=== PATIENT | male | born 1970 | race Two or more races ===

== ENCOUNTER 2017-03-30 15:10 | Inpatient (IN) | payer MEDICAID ==
[~2017-03-30] VITALS: Ht 167.6 cm; Wt 51.7 kg
--- NOTE | 2017-03-30 15:12 | NUR ---
PT DIONICIO CASTILLO ER BED 10 ACCOMPANIED BY PD. ON 5150 HOLD FOR GD/DTS AFTER STATING THAT HE WANTS TO . GOWNED AND PLACED ON MONITOR. AWAITING MD LINDO.
--- NOTE | 2017-03-30 15:32 | NUR ---
DR HOUSE AT BEDSIDE FOR EVAL.
--- NOTE | 2017-03-30 15:43 | NUR ---
DIRECTOR OF COMMUNITY SERVICES AT BEDSIDE FOR BLOOD DRAW.
[2017-03-30 15:48] LABS: BASOPHILS # (AUTO) 0.1 /CMM (0.0-0.2); BASOPHILS % (AUTO) 2.5 % (0.0-2.0); EOSINOPHILS % (AUTO) 0.9 % (0.0-6.0); HEMATOCRIT 43 % (39-51); HEMOGLOBIN 14.4 g/dL (13.5-17.5); LYMPHOCYTES # (AUTO) 1.4 /CMM (0.8-4.8); LYMPHOCYTES % (AUTO) 31.6 % (20.0-44.0); MEAN CORPUSCULAR HEMOGLOBIN 35 PG (26.0-33.0); MEAN CORPUSCULAR HGB CONC 33 g/dl (31.0-36.0); MEAN CORPUSCULAR VOLUME 105 fL (80-96); MONOCYTES # (AUTO) 0.3 /CMM (0.1-1.30); MONOCYTES % (AUTO) 6.3 % (2.0-12.0); NEUTROPHILS # (AUTO) 2.5 /CMM (1.8-8.9); NEUTROPHILS % (AUTO) 58.7 % (43.0-81.0); PLATELET COUNT (AUTO) 79 /CMM (150-450); RDW COEFFICIENT OF VARIATION 13.8 (11.5-15.0); RED BLOOD CELL COUNT(AUTO) 4.11 MIL/uL (4.5-6.0); WHITE BLOOD COUNT (AUTO) 4.4 K/uL (4.3-11.0)
[2017-03-30] MEDS ORDERED: HALOPERIDOL LACTATE INJ 5 MG/ML VIAL IM ONE (16:00)
[2017-03-30] MEDS ORDERED: diphenhydrAMINE HCL 50 MG/ML VIAL IM ONE (16:00)
[2017-03-30] MEDS ORDERED: LORAZEPAM INJ 2 MG/ML VIAL IM ONE (16:00)
[2017-03-30] MEDS ORDERED: diphenhydrAMINE HCL 50 MG/ML VIAL ONE (16:02)
[2017-03-30] MEDS ORDERED: HALOPERIDOL LACTATE INJ 5 MG/ML VIAL ONE (16:02)
[2017-03-30] MEDS ORDERED: LORAZEPAM INJ 2 MG/ML VIAL ONE (16:03)
[2017-03-30 16:19] LABS: ALANINE AMINOTRANSFERASE 166 U/L (12-78); ALCOHOL, BLOOD 473 mg/dL (0-0); ALKALINE PHOSPHATASE 421 U/L (46-116); ASPARTATE AMINOTRANSFERASE 456 U/L (15-37); BILIRUBIN,DIRECT 4.1 mg/dL (0.0-0.2); BILIRUBIN,TOTAL 5.1 mg/dL (0.2-1.0); CALCIUM, SERUM 8.7 mg/dL (8.5-10.1); CARBON DIOXIDE 34 mmol/L (21-32); CHLORIDE 98 mmol/L (98-107); CREATININE 0.6 mg/dL (0.6-1.3); GLUCOSE 98 mg/dL (74-106); SODIUM SERUM 143 mmol/L (136-145); TOTAL PROTEIN, SERUM 6.7 g/dL (6.4-8.2); UREA NITROGEN, BLOOD 5 mg/dL (7-18)
[2017-03-30 16:20] LABS: LYMPHOCYTES % (MANUAL) 37 % (16-48); MONOCYTES % (MANUAL) 3 % (0-11.0); NEUTROPHILS % (MANUAL) 60 (42-76)
[2017-03-30 16:22] LABS: POTASSIUM 2.8 mmol/L (3.5-5.1)
[2017-03-30 16:23] LABS: ACETAMINOPHEN < 2 ug/ml (10-30); SALICYLATE < 2.8 mg/dL (2.8-20.0)
[2017-03-30 16:35] LABS: BILIRUBIN,URINE SMALL (NEGATIVE); BLOOD, URINE Trace-lysed Ery/uL (NEGATIVE); KETONES,URINE Negative (NEGATIVE); LEUKOCYTE ESTERASE ,URINE Negative (NEGATIVE); NITRITE, URINE Negative (NEGATIVE); PROTEIN,URINE Negative (NEGATIVE); UGLUCOSE Negative (NEGATIVE)
[2017-03-30 16:36] LABS: APPEARANCE,URINE Hazy (CLEAR); COLOR,URINE Dark Yellow (YELLOW)
[2017-03-30 16:41] LABS: BACTERIA,URINE None seen /HPF (None Seen); RBC,URINE 0-3 /HPF (0-2); SQUAMOUS EPITHELIAL CELL,UR Moderate /HPF (None Seen)
--- NOTE | 2017-03-30 18:32 | NUR ---
PT SLEEPING ON MONITOR. STABLE VITALS. AWAITING MD LINDO.
[2017-03-30] MEDS ORDERED: MAG HYDROX/AL HYDROX/SIMETH 30 ML UDC PO PRN (19:30)
[2017-03-30] MEDS ORDERED: MAGNESIUM HYDROXIDE 30 ML UDC PO PRN (19:30)
[2017-03-30] MEDS ORDERED: Thiamine 100 MG in IV D5W 50 ML IV ONE (20:00)
--- NOTE | 2017-03-30 20:07 | NUR ---
BED ASSIGNMENT: 104
--- NOTE | 2017-03-30 20:25 | NUR ---
REPORT GIVEN TO YOVANY. PT AWAITING TRANSFER TO FLOOR.
[2017-03-30] MEDS: POTASSIUM CL. PREMIX PERIPHER. 50 ML IV SCH ×3 (21:11→22:56)
[2017-03-30] MEDS: IV NS 0.9% 1,000 ML IV PRN (21:11)
[2017-03-30] MEDS: FAMOTIDINE/PF INJ 20 MG/2 ML VIAL IV SCH (21:57)
[2017-03-31] VITALS: BP 98/68
[2017-03-31] MEDS: POTASSIUM CL. PREMIX PERIPHER. 50 ML IV SCH ×3 (00:08→03:48)
--- NOTE | 2017-03-31 01:49 | NUR ---
RN NOTES 0146 PATIENT AWAKE, RESTLESS. ASKING TO SMOKE AND DRINK WATER. ALPESH, PHYS THER MADE AWARE WITH ORDER TO ADVANCE DIET AND NO SMOKING. PATIENT INFORMED, SANDWICH AND WATER PROVIDED
[2017-03-31] MEDS: LORAZEPAM INJ 2 MG/ML VIAL IV PRN ×3 (02:32→21:30)
--- NOTE | 2017-03-31 02:33 | NUR ---
TELE/RN NOTES: PT. KEEPS ON TRYING TO GET OUT OF THE BED TO GO TO SMOKE. TAKING OFF HIS O2 AND TELE MONITOR. KEEP ON ASKING WHY IS HE HERE AND TO LET HIM GO TO SMOKE. PT. EDUCATED THAT SMOKING IS NOT POSSIBLE RIGHT NOW. PRN ATIVAN GIVEN PER ORDER. W/ 1:1 SITTER AT BEDSIDE. NOT IN ANY RESPIRATORY DISTRESS. CALL LIGHT W/ REACH.
[2017-03-31 04:00] VITALS: BP 104/74
[2017-03-31] MEDS: IV NS 0.9% 1,000 ML IV PRN (05:49)
[2017-03-31 06:24] LABS: BASOPHILS % (AUTO) 0.9 % (0.0-2.0); EOSINOPHILS % (AUTO) 0.3 % (0.0-6.0); HEMATOCRIT 35 % (39-51); HEMOGLOBIN 12.2 g/dL (13.5-17.5); LYMPHOCYTES # (AUTO) 1.1 /CMM (0.8-4.8); LYMPHOCYTES % (AUTO) 24.9 % (20.0-44.0); MEAN CORPUSCULAR HEMOGLOBIN 36 PG (26.0-33.0); MEAN CORPUSCULAR HGB CONC 35 g/dl (31.0-36.0); MEAN CORPUSCULAR VOLUME 105 fL (80-96); MONOCYTES # (AUTO) 0.4 /CMM (0.1-1.30); MONOCYTES % (AUTO) 8.1 % (2.0-12.0); NEUTROPHILS % (AUTO) 65.8 % (43.0-81.0); PLATELET COUNT (AUTO) 60 /CMM (150-450); RDW COEFFICIENT OF VARIATION 14.8 (11.5-15.0); RED BLOOD CELL COUNT(AUTO) 3.37 MIL/uL (4.5-6.0); WHITE BLOOD COUNT (AUTO) 4.6 K/uL (4.3-11.0)
--- NOTE | 2017-03-31 06:36 | NUR ---
RN/TELE NOTES: PT. IN BED AWAKE ASKING TO HEAR HIS RADIO AND TO SMOKE. PT. EASILY REDIRECTED. WATCHING TV. NOT IN ANY RESPIRATORY DISTRESS. GETS UP TO GO TO BATHROOM. CALL LIGHT W/ REACH. ALL NEEDS MEET AND ATTENDED. REPORT GIVEN TO NEXT SHIFT NURSE FOR [facility].
[2017-03-31 06:43] LABS: CALCIUM, SERUM 8.2 mg/dL (8.5-10.1); CREATININE 0.6 mg/dL (0.6-1.3); MAGNESIUM 1.7 mg/dL (1.8-2.4); PHOSPHORUS 1.5 mg/dL (2.5-4.9); POTASSIUM 3.3 mmol/L (3.5-5.1)
--- NOTE | 2017-03-31 07:28 | NUR ---
RN NOTES RECEIVED PT IN STABLE CONDITION, RESTING IN BED WITH SITTER AT BEDSIDE. A&0X3, NO SUICIDAL IDEATION AT THIS TIME, ON 2L NC NO SOB OR DISTRESS NOTED SR ON THE TELE MONITOR HR IN THE 80S. LH 18G IV SITE DRY AND INTACT WITH IVF AT 125ML/HR. SIDE RAILS UPX3, CALL LIGHT WITHIN REACH, BED LOCKED AND IN LOWEST POSITION, WILL CONT TO MONITOR.
[2017-03-31 08:00] VITALS: BP 110/71
[2017-03-31] MEDS: THIAMINE HCL 100 MG TABLET PO SCH (08:18)
[2017-03-31] MEDS: FAMOTIDINE/PF INJ 20 MG/2 ML VIAL IV SCH (08:18)
[2017-03-31 08:35] LABS: BAND % (MANUAL) 1 % (0.0-5.0); EOSINOPHILS % (MANUAL) 1 % (0-4); LYMPHOCYTES % (MANUAL) 25 % (16-48); MONOCYTES % (MANUAL) 5 % (0-11.0); NEUTROPHILS % (MANUAL) 68 (42-76)
--- NOTE | 2017-03-31 09:25 | NUR ---
RN NOTES PT ATTEMPTED TO GET OUT OF BED, IV PULLED OUT, REFUSING TO ALLOW NEW IV AT THE MOMENT. WILL CONT TO MONITOR AND TRY AGAIN.
[2017-03-31] MEDS: Magnesium 1GM/D5W 100ML PREMIX 100 ML IV SCH ×2 (09:54→11:24)
[2017-03-31] MEDS ORDERED: POTASSIUM CHLORIDE 20 MEQ TAB.PRT.SR PO SCH (11:00)
--- NOTE | 2017-03-31 11:12 | NUR ---
YOUNG consulted with Joy Lugo, patient's nurse at [facility] in order to inquire about patient's 5150 Hold. Patient is placed on a 5150 hold per Smart Team. Per NurseBrittney a psychiatric referral was faxed to [facility] and pending response. YOUNG was unable to assess patient needs at the time, however will follow up on this date.
[2017-03-31] MEDS ORDERED: K PHOS NEUTRAL 250 MG TABLET PO ONE (11:30)
[2017-03-31 12:00] VITALS: BP 117/77
[2017-03-31] MEDS: PENTOXIFYLLINE 400 MG TABLET.SA PO SCH ×2 (12:22→17:26)
--- NOTE | 2017-03-31 13:58 | NUR ---
SW met with patient in his room in order to assess for level of functioning and to assess for needs. Patient was oriented x3. Patient reported feeling, "a little sick because I threw up." Patient trembled and speech was impaired. Patient appears to be experiencing withdrawal sxs. Patient denied SI/HI. Patient informed SW that he would like to return home. Patient reported having a problem with alcohol and reported drinking (vodka, beer and wine) every day for the past year. SW provided patient with a copy of substance abuse facilities and he was agreeable. In addition, SW consulted with patient's nurse Isi who reported patient having been assessed by psychiatrist, Dr. Perrin. Patient has been released from 5150 hold, per nurse. SW to follow up to ensure patient's needs have been met.
[2017-03-31] MEDS: ONDANSETRON HCL/PF 4 MG/2 ML VIAL IVP PRN (14:54)
[2017-03-31 15:20] LABS: INR 1.06 (0.87-1.13)
[2017-03-31 16:00] VITALS: BP 105/68
--- NOTE | 2017-03-31 17:10 | NUR ---
SW provided patient with the following referrals to substance abuse facilities: [facility] [address] [facility] [address] , [facility] [address] [facility] [address] and [facility] [address] [facility] [address] . Pt agreed to follow up upon discharge.
--- NOTE | 2017-03-31 18:36 | NUR ---
RN NOTES PT REMAINED IN STABLE CONDITION THROUGHOUT THE SHIFT WITH SITTER AT BEDSIDE, PT HAS 2 EPISODES OF VOMITING ZOFRAN ADMINISTERED. PT WAS REMOVED OFF 5150. NO SIGNS OF DANGER TO SELF THROUGHOUT MY SHIFT. ALL NEEDS MET, PT CLEANED, SNACKS PROVIDED. SIDE RAILS UPX3, BED LOCKED AND IN LOWEST POSITION, WILL ENDORSE TO ONCOMING SHIFT.
--- NOTE | 2017-03-31 19:40 | NUR ---
DIE TROUBLE SHOOTER INITIAL NOTE PT RECEIVED RESTING IN BED WITH SITTER AT BEDSIDE. A/O X2-3 CALM, SLEEPY BUT ABLE TO MAKE NEEDS KNOWN. ON ROOM AIR AND SATURATING 97%. BREATHING EVEN, REGULAR AND UNLABORED. NOTED WITH TREMORS ON HANDS AND WEAKNESS DURING AMBULATION TO THE RESTROOM. IV LEFT ARM CLEAN, PATENT WITH FLUIDS RUNNING. CALL LIGHT WITHIN REACH. WILL CONTINUE TO MONITOR.
[2017-03-31 20:00] VITALS: BP 107/66
--- NOTE | 2017-03-31 21:30 | NUR ---
RN NOTE PT SEEN/EVALUATED BY FIRER LOW PRESSURE FOR DR CRUZ. WITH NEW ORDER FOR LABS AMMONIA, BILIRUBIN, LFT'S. PT REPORTED BLOOD IN STOOL AND FIRER LOW PRESSURE ORDERED STOOL OB. WILL COLLECT AND F/U. ORDERS CARRIED OUT. WILL CONTINUE TO MONITOR.
[2017-04-01] VITALS: BP 118/81
[2017-04-01] MEDS: LORAZEPAM INJ 2 MG/ML VIAL IV PRN ×3 (02:23→12:44)
[2017-04-01 04:00] VITALS: BP_SYST 109; BP_SYST 118; BP_DIAS 76; BP_DIAS 81
[2017-04-01 06:17] LABS: BASOPHILS % (AUTO) 0.8 % (0.0-2.0); EOSINOPHILS % (AUTO) 0.2 % (0.0-6.0); HEMATOCRIT 34 % (39-51); LYMPHOCYTES # (AUTO) 1.4 /CMM (0.8-4.8); LYMPHOCYTES % (AUTO) 26.8 % (20.0-44.0); MEAN CORPUSCULAR HEMOGLOBIN 37 PG (26.0-33.0); MEAN CORPUSCULAR HGB CONC 35 g/dl (31.0-36.0); MEAN CORPUSCULAR VOLUME 105 fL (80-96); MONOCYTES # (AUTO) 0.4 /CMM (0.1-1.30); MONOCYTES % (AUTO) 7.4 % (2.0-12.0); NEUTROPHILS # (AUTO) 3.5 /CMM (1.8-8.9); NEUTROPHILS % (AUTO) 64.8 % (43.0-81.0); RDW COEFFICIENT OF VARIATION 14.6 (11.5-15.0); RED BLOOD CELL COUNT(AUTO) 3.25 MIL/uL (4.5-6.0); WHITE BLOOD COUNT (AUTO) 5.4 K/uL (4.3-11.0)
[2017-04-01] MEDS: IV NS 0.9% 1,000 ML IV PRN (06:18)
[2017-04-01] MEDS: ONDANSETRON HCL/PF 4 MG/2 ML VIAL IVP PRN ×2 (06:18→11:27)
[2017-04-01 06:30] LABS: PLATELET COUNT (AUTO) 45 /CMM (150-450)
[2017-04-01 06:50] LABS: CALCIUM, SERUM 8.6 mg/dL (8.5-10.1); CREATININE 0.7 mg/dL (0.6-1.3); MAGNESIUM 2.2 mg/dL (1.8-2.4); POTASSIUM 3.1 mmol/L (3.5-5.1)
--- NOTE | 2017-04-01 07:01 | NUR ---
TECHNICAL SPEC CLOSING NOTE PT REMAINED STABLE DURING SHIFT WITH SITTER AT BEDSIDE. PT NOTED WITH UNSTEADY GAIT WHEN AMBULATING TO THE RESTROOM. NOTED WITH TREMORS AND AGITATION. GAVE ATIVAN 0.5ML TO CALM THE PT.ALL NEEDS ATTENDED TO PROMPTLY. [id number] THROUGHOUT THE SHIFT.ALL SAFETY MEASURES IN PLACE. INFORMED BY LAB FOR CRITICAL LAB THE PT'S PLATELET COUNT HAS DECREASED FROM 60 TO 45 AND STOOL OB IS POSITIVE. WILL ENDORSE TO NEXT SHIFT FOR CONTINUITY OF CARE.
[2017-04-01 08:00] VITALS: BP 120/82
--- NOTE | 2017-04-01 08:00 | NUR ---
TELE1/RN AM SHIFT INITIAL NOTES RECEIVED PT AWAKE SITTING IN BED. PT A/O X 2, CONFUSED, BUR COMPLIANT AT THIS TIME. NOTED WITH JAUNDICE AND TREMORS. ON ROOM AIR SATURATING @ 98%, LUNG SOUNDS CLEAR. ON TELE WITH SINUS RHYTHM, HR 90. WITH ON GOING IV INFUSION OF NS @ 50CC/HR, IV SITE PATENT WITH NO S/S OF INFECTION. PT IS COMFORTABLE AT THIS TIME, SCHEDULED AM MEDS TO BE GIVEN. CL WITHIN REACHED AND SAFETY MAINTAINED. ON GOING MONITORING.
[2017-04-01 08:03] LABS: BAND % (MANUAL) 1 % (0.0-5.0); LYMPHOCYTES % (MANUAL) 19 % (16-48); MONOCYTES % (MANUAL) 5 % (0-11.0); NEUTROPHILS % (MANUAL) 75 (42-76)
[2017-04-01] MEDS: FAMOTIDINE/PF INJ 20 MG/2 ML VIAL IV SCH (08:27)
[2017-04-01] MEDS: PENTOXIFYLLINE 400 MG TABLET.SA PO SCH ×3 (08:28→16:55)
[2017-04-01] MEDS: THIAMINE HCL 100 MG TABLET PO SCH (08:28)
--- NOTE | 2017-04-01 09:30 | NUR ---
MS1/RN HIDA SCAN NOTIFIED BY RADIOLOGY THAT PT IS SCHEDULED FOR HIDA SCAN. CONSENT OBTAINED FOR PROCEDURE FROM PT'S MOTHER, PT UNABLE TO SIGN D/T TREMORS, PT PLACED ON NPO, PROCEDURE SCHEDULED AT NOON TODAY. MONITORING CONTINUED.
--- NOTE | 2017-04-01 10:25 | NUR ---
[facility] RN NOTE Received bedside SBAR report on the patient. Patient is A/O x3. Patient is awake and responsive. Patient is in bed, bes is locked, in lowest position, side rails up X 2, in semi Juarez's position. Call light within reach. Patient educated to call for assistance. Patient verbalized understanding of the teachings. Will continue to assess/monitor throughout the shift.3
--- NOTE | 2017-04-01 10:26 | NUR ---
TELE1/DUSTING AND BRUSHING MACHINE OPERATOR OF CARE REPORT GIVEN TO NURSE MICHELLE, ENDORSED TO CONTINUE CARE. CL WITHIN REACHED AND SAFETY MAINTAINED.
[2017-04-01 10:29] LABS: ALBUMIN 2.6 g/dL (3.4-5.0); BILIRUBIN,DIRECT 6.9 mg/dL (0.0-0.2); BILIRUBIN,TOTAL 8.9 mg/dL (0.2-1.0); TOTAL PROTEIN, SERUM 5.7 g/dL (6.4-8.2)
[2017-04-01] MEDS ORDERED: POTASSIUM CHLORIDE 20 MEQ TAB.PRT.SR PO ONE (10:30)
[2017-04-01] MEDS ORDERED: NICOTINE PATCH (21MG) 21 MG PATCH.TD24 TD ONE (10:59)
[2017-04-01] MEDS ORDERED: NICOTINE PATCH (21MG) 21 MG PATCH.TD24 TD SCH (11:00)
[2017-04-01] MEDS: NICOTINE PATCH (21MG) 21 MG PATCH.TD24 TD SCH (11:03)
--- NOTE | 2017-04-01 11:03 | NUR ---
NICOTINE PATCH ADMINISTERED EARLY PER PT. REQUEST AND OK BY
--- NOTE | 2017-04-01 12:04 | NUR ---
Social service consult requested by Jackie from [facility] regarding patients after care plan. Pts family addressed concerns about pts discharge and asked that he remain in the hospital for an additional week. SW advised family to discuss concerns with pts medical treatment team (i.e. doctor/nurse) regarding pts discharge. Family reported having addressed their concerns with medical staff already. Pt informed SW that he did not want to participate in a residential facility and stated, "I just want to go home." YOUNG provided pts family with the following referrals to substance abuse facilities: [facility] [address] [facility] [address] , [facility] [address] [facility] [address] and [facility] [address] [facility] [address] . In addition, YOUNG provided family with a copy of the Substance Abuse Resources section of the [facility] [place] 2016 Resource Guide. Family agreed to follow up by contacting facilities.
--- NOTE | 2017-04-01 12:40 | NUR ---
[facility] RN NOTE Patient attempted to get out of the bed and leave. Mother at the bedside stopped the patient and called the nurse. PAtient reported severe anxiety. Bed alarm on. Ativan administered as prescribed. Will continue to monitor.
[2017-04-01 16:00] VITALS: BP 122/82
[2017-04-01] MEDS ORDERED: K PHOS NEUTRAL 250 MG TABLET PO ONE (16:00)
--- NOTE | 2017-04-01 16:01 | NUR ---
YOUNG faxed inquiry (face sheet, history and physical, radiology report and toxicology) to Senthil from [facility] [address] [facility] [address]. Scale Assembly Set Up Worker will follow up to ensure pt was appropriately linked to services.
[2017-04-01] MEDS: HALOPERIDOL LACTATE INJ 5 MG/ML VIAL IM PRN (16:57)
--- NOTE | 2017-04-01 19:06 | NUR ---
[facility] RN CLOSING NOTE Patient is A/O x3. Patient is asleep, easily awaken and responsive. No evident s/s of distress present. Chest rising equally, bilaterally. Spo2 99% on room air. Patient is in bed, bes is locked, in lowest position, side rails up X 3, in semi Juarez's position. m Sitter at the bedside. Call light within reach. Patient educated to call for assistance. Patient verbalized understanding of the teachings. Will endorse to awake overnight monitor nurse for [facility]
[2017-04-01 20:00] VITALS: BP 122/80
[2017-04-02] MEDS: HALOPERIDOL LACTATE INJ 5 MG/ML VIAL IM PRN (02:10)
--- NOTE | 2017-04-02 02:11 | NUR ---
MS-1/LOGGING ENGINEER PT BECOMING RESTLESS AND AGITATED. HALDOL 5MG IM PRN ADMINISTERED ORDERED. 1:1 SITTER AT BEDSIDE WILL CONTINUE TO MONITOR.
[2017-04-02 04:00] VITALS: BP 91/65
[2017-04-02 06:36] LABS: BASOPHILS % (AUTO) 0.1 % (0.0-2.0); EOSINOPHILS % (AUTO) 0.7 % (0.0-6.0); HEMATOCRIT 35 % (39-51); HEMOGLOBIN 12.1 g/dL (13.5-17.5); LYMPHOCYTES # (AUTO) 1.1 /CMM (0.8-4.8); LYMPHOCYTES % (AUTO) 20.6 % (20.0-44.0); MEAN CORPUSCULAR HEMOGLOBIN 36 PG (26.0-33.0); MEAN CORPUSCULAR HGB CONC 35 g/dl (31.0-36.0); MEAN CORPUSCULAR VOLUME 104 fL (80-96); MONOCYTES # (AUTO) 0.4 /CMM (0.1-1.30); NEUTROPHILS # (AUTO) 3.9 /CMM (1.8-8.9); NEUTROPHILS % (AUTO) 71.6 % (43.0-81.0); RDW COEFFICIENT OF VARIATION 14.5 (11.5-15.0); RED BLOOD CELL COUNT(AUTO) 3.33 MIL/uL (4.5-6.0); WHITE BLOOD COUNT (AUTO) 5.5 K/uL (4.3-11.0)
[2017-04-02 06:49] LABS: ALBUMIN 2.4 g/dL (3.4-5.0); BILIRUBIN,DIRECT 9.1 mg/dL (0.0-0.2); CALCIUM, SERUM 8.8 mg/dL (8.5-10.1); CREATININE 0.6 mg/dL (0.6-1.3); PLATELET COUNT (AUTO) 44 /CMM (150-450); POTASSIUM 3.2 mmol/L (3.5-5.1); TOTAL PROTEIN, SERUM 5.4 g/dL (6.4-8.2)
[2017-04-02 07:22] LABS: EOSINOPHILS % (MANUAL) 1 % (0-4); LYMPHOCYTES % (MANUAL) 20 % (16-48); MONOCYTES % (MANUAL) 7 % (0-11.0); NEUTROPHILS % (MANUAL) 72 (42-76)
--- NOTE | 2017-04-02 07:56 | NUR ---
RN OPENING NOTES PT RESTING COMFORTABLY IN BED WITH EYES OPEN. AOX3. DENIES CP, SOB. DENIES ANY PAIN AT THIS TIME. RESPIRATIONS ARE EVEN AND UNLABORED. NO ACUTE DISTRESS NOTED. IV ACCESS ON THE LEFT ARM, 20 G, WITH NS RUNNING @ 50MLS/HR. NO S/S OF INFILTRATION. SITTER AT THE BED SIDE FOR SAFETY. BED LOCKED IN THE LOWEST POSITION WITH SIDERAILS UP X2. CALL LIGHT WITHIN REACH. WILL CONTINUE TO MONITOR, ASSESS AND EDUCATE THROUGHOUT SHIFT.
[2017-04-02 08:00] VITALS: BP 100/76
[2017-04-02] MEDS: THIAMINE HCL 100 MG TABLET PO SCH (08:55)
[2017-04-02] MEDS: PENTOXIFYLLINE 400 MG TABLET.SA PO SCH ×3 (08:55→17:34)
[2017-04-02] MEDS: NICOTINE PATCH (21MG) 21 MG PATCH.TD24 TD SCH (08:56)
[2017-04-02] MEDS: BOOST PLUS FOOD-VANILLA 237 ML BOX PO SCH ×3 (08:56→17:33)
[2017-04-02] MEDS: FAMOTIDINE/PF INJ 20 MG/2 ML VIAL IV SCH (08:56)
[2017-04-02] MEDS: POTASSIUM CHLORIDE 20 MEQ TAB.PRT.SR PO SCH ×2 (10:45→11:41)
[2017-04-02 12:00] VITALS: BP 111/77
--- NOTE | 2017-04-02 20:09 | NUR ---
RN CLOSING NOTES PT RESTING COMFORTABLY IN BED WITH EYES CLOSED. EASILY AROUSABLE. AOX3. DENIES PAIN. DENIES CP AND SOB. IV ACCES PATENT AND INTACT. NS RUNNING @50ML. HIDA SCAN TOMORROW. CONSENT SIGNED AND PLACED IN CHART. ALL NEEDS MET. ALL MEDS GIVEN APPROPRIATE. BED LOCKED IN THE LOWEST POSITION WITH SIDE RAILS UPX2. WILL ENDORSE TO NIGHT RN FOR [facility].
--- NOTE | 2017-04-02 20:10 | NUR ---
MS RN NOTE: PATIENT RESTING IN BED, NO ACUTE DISTRESS NOTED. BREATHING EVEN AND UNLABORED, NO SOB NOTED. IV TO LEFT ARM IN PLACE. PATIENT FOR HIDA SCAN TOMORROW, CONSENT SIGNED IN CHART. INFORMED PATIENT THAT HE CAN NOT EAT OR DRINK AFTER MIDNIGHT. BED LOCKED AND IN LOWEST POSITION, CALL LIGHT IN REACH. WILL CONTINUE TO MONITOR.
[2017-04-02] MEDS: ONDANSETRON HCL/PF 4 MG/2 ML VIAL IVP PRN (21:08)
[2017-04-02] MEDS: IV NS 0.9% 1,000 ML IV PRN (21:09)
--- NOTE | 2017-04-02 21:15 | NUR ---
MS RN NOTE: PATIENT WITH 1 EPISODE OF VOMITING, ZOFRAN 4MG IV GIVEN PER MD ORDER. WILL CONTINUE TO MONITOR.
[2017-04-02 22:00] VITALS: BP 111/77
[2017-04-03 04:30] VITALS: BP 107/76
--- NOTE | 2017-04-03 06:20 | NUR ---
MS RN NOTE: PATIENT RESTING IN BED, NO ACUTE DISTRESS NOTED. BREATHING EVEN AND UNLABORED, NO SOB NOTED. IV TO LEFT ARM IN PLACE. PATIENT FOR HIDA SCAN TODAY, CONSENT SIGNED IN CHART AND NPO SINCE MIDNIGHT. BED LOCKED AND IN LOWEST POSITION, CALL LIGHT IN REACH. WILL ENDORSE TO DAY NURSE TO CONTINUE WITH PLAN OF CARE.
[2017-04-03 06:30] LABS: BASOPHILS % (AUTO) 0.6 % (0.0-2.0); EOSINOPHILS # (AUTO) 0.1 /CMM (0.0-0.7); EOSINOPHILS % (AUTO) 1.3 % (0.0-6.0); HEMATOCRIT 35 % (39-51); HEMOGLOBIN 11.9 g/dL (13.5-17.5); LYMPHOCYTES # (AUTO) 1.3 /CMM (0.8-4.8); LYMPHOCYTES % (AUTO) 20.9 % (20.0-44.0); MEAN CORPUSCULAR HEMOGLOBIN 36 PG (26.0-33.0); MEAN CORPUSCULAR HGB CONC 34 g/dl (31.0-36.0); MEAN CORPUSCULAR VOLUME 106 fL (80-96); MONOCYTES # (AUTO) 0.5 /CMM (0.1-1.30); MONOCYTES % (AUTO) 7.5 % (2.0-12.0); NEUTROPHILS # (AUTO) 4.3 /CMM (1.8-8.9); NEUTROPHILS % (AUTO) 69.7 % (43.0-81.0); PLATELET COUNT (AUTO) 64 /CMM (150-450); RDW COEFFICIENT OF VARIATION 14.5 (11.5-15.0); RED BLOOD CELL COUNT(AUTO) 3.31 MIL/uL (4.5-6.0); WHITE BLOOD COUNT (AUTO) 6.1 K/uL (4.3-11.0)
[2017-04-03 06:31] LABS: INR 1.38 (0.87-1.13); PROTHROMBIN TIME 14.4 SECS (9.5-12.7)
[2017-04-03 07:10] LABS: ALBUMIN 2.4 g/dL (3.4-5.0); BILIRUBIN,DIRECT 10.2 mg/dL (0.0-0.2); CALCIUM, SERUM 8.7 mg/dL (8.5-10.1); CREATININE 0.6 mg/dL (0.6-1.3); POTASSIUM 3.5 mmol/L (3.5-5.1); TOTAL PROTEIN, SERUM 5.4 g/dL (6.4-8.2)
[2017-04-03 07:15] LABS: THYROID STIMULATING HORMONE 1.18 uIU/mL (0.358-3.74)
--- NOTE | 2017-04-03 07:25 | NUR ---
RN OPENING NOTES RECEIVED PATIENT IN BED, AWAKE. A/OX3. NO ACUTE DISTRESS, NO SOB NOTED. DENIES ANY PAIN OR DISCOMFORT. IV SITE INTACT AND PATENT. KEPT PATIENT SAFE AND COMFORTABLE. BED IN LOW POSITION, LOCKED, SIDERAILS UPX2. CALL LIGHT WITHIN REACH. PATIENT FOR HIDA SCAN TODAY, CONSENT SIGNED, NPO SINCE MIDNIGHT. WILL CONTINUE TO MONITOR ACCORDINGLY.
[2017-04-03 08:00] VITALS: BP 144/77
[2017-04-03 08:05] VITALS: BP 114/77
[2017-04-03 08:14] LABS: LYMPHOCYTES % (MANUAL) 19 % (16-48); MONOCYTES % (MANUAL) 9 % (0-11.0); NEUTROPHILS % (MANUAL) 72 (42-76)
[2017-04-03] MEDS: NICOTINE PATCH (21MG) 21 MG PATCH.TD24 TD SCH (09:29)
[2017-04-03] MEDS: PENTOXIFYLLINE 400 MG TABLET.SA PO SCH ×3 (09:44→17:00)
[2017-04-03] MEDS: THIAMINE HCL 100 MG TABLET PO SCH (09:44)
[2017-04-03] MEDS: BOOST PLUS FOOD-VANILLA 237 ML BOX PO SCH ×3 (09:45→17:00)
[2017-04-03] MEDS: FAMOTIDINE/PF INJ 20 MG/2 ML VIAL IV SCH (09:47)
--- NOTE | 2017-04-03 09:50 | NUR ---
RN NOTES VERIFIED WITH RADIOLOGY, HIDA SCAN WILL BE DONE TOMORROW BECAUSE ORDER IS ROUTINE AND NOT STAT. EYEGLASS LENS GENERATOR AWARE. WILL NOTIFY MD. Addendum: 04/03/17 at [address] NANCY CASILLAS.
--- NOTE | 2017-04-03 10:00 | NUR ---
RN NOTES PLEASE KEEP PATIENT NPO AFTER MIDNIGHT, WILL HAVE HIDA SCAN TOMORROW 04/04/17.
[2017-04-03 16:00] VITALS: BP 112/78
[2017-04-03] MEDS: LORAZEPAM INJ 2 MG/ML VIAL IV PRN (17:02)
[2017-04-03] MEDS: IV NS 0.9% 1,000 ML IV PRN (17:09)
--- NOTE | 2017-04-03 18:49 | NUR ---
RN CLOSING NOTES PATIENT IN BED RESTING. NO ACUTE DISTRESS, NO SOB NOTED. DENIES PAIN OR DISCOMFORT. ALL NEEDS ATTENDED AND PROVIDED. KEPT PATIENT SAFE AND COMFORTABLE. SITTER AT BEDSIDE FOR SAFETY. BED IN LOW POSITION, LOCKED, SIDERAILS UPX2. CALL LIGHT IN REACH. WILL ENDORSED TO FINANCE OFFICER RN FOR [facility].
--- NOTE | 2017-04-03 19:30 | NUR ---
RN INITIAL NOTES RECEIVED PATIENT IN BED, AWAKE, ALERT AND ORIENTED X3, WITH PERIODS OF CONFUSION, 1:1 SITTER AT BEDSIDE. BREATHING EVEN AND NONLABORED, TOLERATING ROOM AIR WELL, FREE FROM ANY S/S OF RESPIRATORY DISTRESS. LEFT FOREARM IV PATENT AND INTACT, FLUSHED WITH NS, FREE FROM ANY S/S OF INFILTRATION OR PHLEBITIS, IVF ONGOING PRESCRIBED. PLAN OF CARE DISCUSSED WITH THE PATIENT, WHO VERBALIZES UNDERSTANDING. CALL LIGHT LEFT WITHIN EASY REACH, BED IN LOWEST AND LOCKED POSITION. WILL CONTINUE TO CLOSELY MONITOR.
[2017-04-03 20:00] VITALS: BP 101/65
--- NOTE | 2017-04-04 | NUR ---
RN NOTES PATIENT NPO AT THIS TIME, SCHEDULED FOR HIDA SCAN THIS AM. PATIENT AWARE, WITH VERBALIZATION OF UNDERSTANDING
[2017-04-04 04:00] VITALS: BP 116/80
--- NOTE | 2017-04-04 07:00 | NUR ---
RN CLOSING NOTES PATIENT RESTING COMFORTABLY IN BED, 1:1 SITTER AT BEDSIDE. PATIENT NPO SINCE [place]. WILL ENDORSE THE PATIENT TO THE AM SHIFT NURSE FOR [facility]
[2017-04-04 08:00] VITALS: BP 123/88
[2017-04-04] MEDS: THIAMINE HCL 100 MG TABLET PO SCH (08:50)
[2017-04-04] MEDS: PENTOXIFYLLINE 400 MG TABLET.SA PO SCH ×3 (08:50→16:22)
[2017-04-04] MEDS: FAMOTIDINE/PF INJ 20 MG/2 ML VIAL IV SCH (08:50)
[2017-04-04] MEDS: NICOTINE PATCH (21MG) 21 MG PATCH.TD24 TD SCH (08:50)
[2017-04-04] MEDS: BOOST PLUS FOOD-VANILLA 237 ML BOX PO SCH ×3 (08:51→17:53)
--- NOTE | 2017-04-04 11:00 | NUR ---
YOUNG received a call from pt's MANISH Dhaliwal informing YOUNG that pt's mother would like to speak with YOUNG. YOUNG and heel caser Vladimir met with pt. and his mother bedside. Pt. is alert and oriented x 3. Pt's mother would like for pt. to go straight to a detox program after he is medically cleared. YOUNG informed pt. and his mother that she will refer pt. to various detox programs,however since pt. has [employer] insurance there is usually a wait list. Pt. and his mother understood. Pt. is willing to go to detox program once medically cleared, however pt. doesn't seem too keen on it. Pt. was last time in a drug treatment program was in 1999 in [place]. YOUNG contacted [facility] and spoke to Frandy who informed YOUNG that they do not availability for an assessment until mid next week. YOUNG also referred pt. to [facility] and was informed by to have pt. call in for a phone assessment. YOUNG contacted pt's mother and left her a voicemail message requesting her to have pt. call [facility] for a phone assessment. YOUNG also called pt's RN Isra and gave him the phone number for [facility] to give to pt. to call. YOUNG contacted [facility] and spoke to Vibha who informed YOUNG that they will be able to accept pt. on Tuesday04/07/17 and pt. needs to show up at 8AM. Detox center is located at [address] [place] [id number]. Addendum: 04/04/17 at 1205 by MARTHA VIDAL Correction: Pt. to go to [facility] on 04/06/17 and not 04/07/17. SW spoke to pt. and his mom regarding pt. being accepted to [facility].
[2017-04-04 12:00] VITALS: BP 116/80
[2017-04-04 13:20] LABS: EOSINOPHILS # (AUTO) 0.1 /CMM (0.0-0.7); EOSINOPHILS % (AUTO) 1.3 % (0.0-6.0); HEMATOCRIT 33 % (39-51); HEMOGLOBIN 11.5 g/dL (13.5-17.5); LYMPHOCYTES # (AUTO) 2.9 /CMM (0.8-4.8); LYMPHOCYTES % (AUTO) 41.7 % (20.0-44.0); MEAN CORPUSCULAR HEMOGLOBIN 37 PG (26.0-33.0); MEAN CORPUSCULAR HGB CONC 35 g/dl (31.0-36.0); MEAN CORPUSCULAR VOLUME 105 fL (80-96); MONOCYTES # (AUTO) 0.7 /CMM (0.1-1.30); MONOCYTES % (AUTO) 9.4 % (2.0-12.0); NEUTROPHILS # (AUTO) 3.4 /CMM (1.8-8.9); NEUTROPHILS % (AUTO) 47.6 % (43.0-81.0); RED BLOOD CELL COUNT(AUTO) 3.14 MIL/uL (4.5-6.0); WHITE BLOOD COUNT (AUTO) 7.1 K/uL (4.3-11.0)
[2017-04-04 13:42] LABS: ALBUMIN 2.3 g/dL (3.4-5.0); BILIRUBIN,DIRECT 11.8 mg/dL (0.0-0.2); BILIRUBIN,TOTAL 14.1 mg/dL (0.2-1.0); CALCIUM, SERUM 8.8 mg/dL (8.5-10.1); CREATININE 0.5 mg/dL (0.6-1.3); POTASSIUM 3.5 mmol/L (3.5-5.1); TOTAL PROTEIN, SERUM 5.2 g/dL (6.4-8.2)
[2017-04-04 14:07] LABS: PLATELET COUNT (AUTO) 103 /CMM (150-450)
[2017-04-04 16:00] VITALS: BP 119/70
--- NOTE | 2017-04-04 19:25 | NUR ---
RN OPEN NOTES RECEIVED PATIENT RESTING IN BED WITH SITTER, EASILY AROUSABLE. A/O X3. NO SIGNS OF DISTRESS OR DISCOMFORT. BREATHING EVEN AND UNLABORED. IV ACCESS IN LFA WITH NS INFUSING, PATENT AND INTACT, NO SIGNS OF REDNESS OR INFILTRATION. BED IN LOW LOCKED POSITION WITH SIDE RAILS X2. CALL LIGHT WITHIN REACH. WILL CONTINUE TO MONITOR.
[2017-04-04 20:00] VITALS: BP 110/80
[2017-04-04] MEDS: IV NS 0.9% 1,000 ML IV PRN (21:27)
[2017-04-05 04:00] VITALS: BP 107/78
--- NOTE | 2017-04-05 06:50 | NUR ---
RN CLOSING NOTES PATIENT AWAKE IN BED WITH SITTER. A/O X3. NO SIGNS OF DISTRESS OR DISCOMFORT. BREATHING EVEN AND UNLABORED. IV ACCESS IN LFA WITH NS INFUSING, PATENT AND INTACT, NO SIGNS OF REDNESS OR INFILTRATION. ALL NEEDS MET. NO SIGNIFICANT CHANGES THROUGH THE NIGHT. BED IN LOW LOCKED POSITION WITH SIDE RAILS X2. CALL LIGHT WITHIN REACH. WILL ENDORSE TO AM SHIFT FOR [facility].
[2017-04-05 07:40] LABS: HEMATOCRIT 33 % (39-51); HEMOGLOBIN 11.4 g/dL (13.5-17.5); MEAN CORPUSCULAR HEMOGLOBIN 37 PG (26.0-33.0); MEAN CORPUSCULAR HGB CONC 35 g/dl (31.0-36.0); MEAN CORPUSCULAR VOLUME 105 fL (80-96); PLATELET COUNT (AUTO) 129 /CMM (150-450); RED BLOOD CELL COUNT(AUTO) 3.09 MIL/uL (4.5-6.0); WHITE BLOOD COUNT (AUTO) 7.3 K/uL (4.3-11.0)
--- NOTE | 2017-04-05 07:46 | NUR ---
RN NOTES RECEIVED PT. PT IS STABLE AND RESTING IN BED. A/OX3. NO S/S OF DISTRESS OR SOB. PT DOES NOT APPEAR TO BE IN PAIN. SKIN INTACT, ALTHOUGH JAUNDICED. IV ACCESS LOCATED ON LEFT FOREARM 20G, RUNNING NS AT 50 ML/HR. PT IS ON CLEAR LIQUID DIET, HAS REQUESTED ADVANCEMENT OF DIET, WILL F/U WITH HOSPITALIST IN AM. SAFETY MEASURES IN PLACE, CALL LIGHT WITHIN REACH. WILL CONTINUE TO MONITOR.
[2017-04-05 07:54] LABS: INR 1.25 (0.87-1.13)
[2017-04-05 08:00] VITALS: BP 108/74
[2017-04-05 08:00] LABS: ALBUMIN 2.2 g/dL (3.4-5.0); BILIRUBIN,TOTAL 15.8 mg/dL (0.2-1.0); CALCIUM, SERUM 8.9 mg/dL (8.5-10.1); CREATININE 0.5 mg/dL (0.6-1.3); POTASSIUM 3.4 mmol/L (3.5-5.1); TOTAL PROTEIN, SERUM 5.3 g/dL (6.4-8.2)
[2017-04-05] MEDS ORDERED: POTASSIUM CHLORIDE 20 MEQ TAB.PRT.SR PO SCH (09:30)
[2017-04-05] MEDS: PENTOXIFYLLINE 400 MG TABLET.SA PO SCH ×2 (09:42→13:09)
[2017-04-05] MEDS: THIAMINE HCL 100 MG TABLET PO SCH (09:43)
[2017-04-05] MEDS: NICOTINE PATCH (21MG) 21 MG PATCH.TD24 TD SCH (09:43)
[2017-04-05] MEDS: FAMOTIDINE/PF INJ 20 MG/2 ML VIAL IV SCH (09:43)
[2017-04-05] MEDS: BOOST PLUS FOOD-VANILLA 237 ML BOX PO SCH ×2 (09:44→13:09)
[2017-04-05 12:02] LABS: LYMPHOCYTES % (MANUAL) 26 % (16-48); MONOCYTES % (MANUAL) 8 % (0-11.0); NEUTROPHILS % (MANUAL) 65 (42-76)
[2017-04-05 12:03] LABS: EOSINOPHILS % (MANUAL) 1 % (0-4)
[2017-04-05] MEDS ORDERED: CHLO25CA22 PO (13:55)
[2017-04-05] MEDS ORDERED: THIA100T13 PO (13:55)
[2017-04-05] MEDS ORDERED: PENTOXIFYLLINE PO (13:58)
--- NOTE | 2017-04-05 15:23 | NUR ---
YOUNG received a call from supportive employment case manager Payal Tamez informing YOUNG that pt. has declined to go to detox program and will be going home.
--- NOTE | 2017-04-05 16:03 | NUR ---
DISCHARGE NOTE PT DISCHARGED HOME. A/OX4. AT TIME OF DISCHARGE PT STABLE, NO SOB/LABORED BREATHING, AND VSS. PT HAS NO C/O PAIN. PT STILL APPEARS TO BE JAUNDICED. DISCHARGE TEACHING PERFORMED USING [employer], PT VERBALIZED UNDERSTANDING. PRIOR TO D/C PT DISCUSSED D/C WITH CASE MANAGEMENT, PT DECLINES RECOMMENDATION TO BE D/C TO INPATIENT ETOH REHAB. BELONGINGS LIST AND PT DISCHARGE INSTRUCTIONS SIGNED AND COPIED. COPIES PLACED IN CHART. IV ACCESS REMOVED. NEW MEDICATION PRESCRIPTION GIVEN TO PT AND COPIED/PLACED IN CHART. PT'S MOTHER ARRIVED TO PROVIDE TRANSPORT, PT LEFT IN A PRIVATE CAR WITH MOTHER UPON D/C FROM HOSPITAL.
== END 2017-04-05 15:50 | disposition home or self-care (01) | DRG 775 ==
LOC: ER 15:12 → TELE-TD 20:38 → TELE1 20:58 → MEDSG1 04-01 09:10
PROVIDERS: ADMIT Nurse Practitioner Acute Care; ATTEND Nurse Practitioner Acute Care
DX: F10.229 Alcohol dependence with intoxication, unspecified (principal); F10.239 Alcohol dependence with withdrawal, unspecified; G92 Toxic encephalopathy; D61.818 Other pancytopenia; E44.0 Moderate protein-calorie malnutrition; K92.2 Gastrointestinal hemorrhage, unspecified; D69.59 Other secondary thrombocytopenia; E88.09 Other disorders of plasma-protein metabolism, not elsewhere classified; E83.42 Hypomagnesemia; E83.39 Other disorders of phosphorus metabolism; F20.9 Schizophrenia, unspecified; F17.210 Nicotine dependence, cigarettes, uncomplicated; E87.6 Hypokalemia; D75.89 Other specified diseases of blood and blood-forming organs; E86.0 Dehydration; F12.10 Cannabis abuse, uncomplicated; K70.10 Alcoholic hepatitis without ascites; K72.90 Hepatic failure, unspecified without coma; E53.8 Deficiency of other specified B group vitamins; E51.2 Wernicke's encephalopathy; R74.0 Nonspecific elevation of levels of transaminase and lactic acid dehydrogenase [LDH]; K70.0 Alcoholic fatty liver; Z73.6 Limitation of activities due to disability; T51.0X1A Toxic effect of ethanol, accidental (unintentional), initial encounter; Y90.8 Blood alcohol level of 240 mg/100 ml or more; E80.6 Other disorders of bilirubin metabolism; M62.50 Muscle wasting and atrophy, not elsewhere classified, unspecified site; F29 Unspecified psychosis not due to a substance or known physiological condition; Z68.1 Body mass index [BMI] 19.9 or less, adult; D53.9 Nutritional anemia, unspecified
CPT/HCPCS: 36415; 76705-TC; 78226; 80048-TC; 80053-TC; 80076-TC; 80305; 81000-TC; 82140-TC; 82247-TC; 82248-TC; 82272-TC; 82728-TC; 82746; 83540-TC; 83735-TC; 84100-TC; 84443-TC; 85025-TC; 85610-TC; 85730-TC; 87081-TC; 97116-TC; 97530-TC; A4606; A9537; G0480; J1200; J1630; J2060; J2405; J3411; J3475; J3480; J3490; J7030; J7060; Z7610